=== PATIENT | female | born 1985 | race Caucasian/White ===

== ENCOUNTER 2017-12-08 11:10 | Emergency (ER) | payer SELFPAY ==
[~2017-12-08] VITALS: Ht 160 cm; Wt 61.2 kg
[2017-12-08] MEDS ORDERED: LORAZEPAM INJ 2 MG/ML VIAL ONE (11:20)
[2017-12-08] MEDS ORDERED: HALOPERIDOL LACTATE INJ 5 MG/ML VIAL ONE (11:20)
[2017-12-08] MEDS: LORAZEPAM INJ 2 MG/ML VIAL IM ONE (11:32)
[2017-12-08] MEDS: HALOPERIDOL LACTATE INJ 5 MG/ML VIAL IM ONE (11:32)
--- NOTE | 2017-12-08 11:32 | NUR ---
PT REC'D TO ER VIA EMS TALKING AND CONFUSED ALANA WRIST RESTRAINT APPLIED . IM ATIVAN AND HALDOL 5 MG IM GIVEN PER MD ORDER . LABS DRAWN SEN TO LAB AWAITING EVALUATION BY ER PROVIDER.
[2017-12-08 11:36] LABS: BASOPHILS # (AUTO) 0.4 /CMM (0.0-0.2); BASOPHILS % (AUTO) 2.8 % (0.0-2.0); EOSINOPHILS % (AUTO) 0.1 % (0.0-6.0); HEMATOCRIT 38 % (33-45); LYMPHOCYTES # (AUTO) 1.9 /CMM (0.8-4.8); MEAN CORPUSCULAR HEMOGLOBIN 29 PG (26.0-33.0); MEAN CORPUSCULAR HGB CONC 34 g/dl (31.0-36.0); MEAN CORPUSCULAR VOLUME 86 fL (82-100); MONOCYTES % (AUTO) 6.2 % (2.0-12.0); NEUTROPHILS # (AUTO) 12.3 /CMM (1.8-8.9); NEUTROPHILS % (AUTO) 78.9 % (43.0-81.0); PLATELET COUNT (AUTO) 260 /CMM (150-450); RDW COEFFICIENT OF VARIATION 13.4 (11.5-15.0); RED BLOOD CELL COUNT(AUTO) 4.44 MIL/uL (4.0-5.2); WHITE BLOOD COUNT (AUTO) 15.6 K/uL (4.3-11.0)
[2017-12-08 11:45] LABS: CALCIUM, SERUM 9.3 mg/dL (8.5-10.1); CARBON DIOXIDE 24 mmol/L (21-32); CHLORIDE 102 mmol/L (98-107); CREATININE 0.7 mg/dL (0.6-1.3); GLUCOSE 83 mg/dL (74-106); POTASSIUM 3.1 mmol/L (3.5-5.1); SODIUM SERUM 139 mmol/L (136-145); UREA NITROGEN, BLOOD 15 mg/dL (7-18)
--- NOTE | 2017-12-08 11:55 | NUR ---
PT ABMB TO BR VOIDED UA SENT TO LAB VSS
[2017-12-08 11:58] LABS: ACETAMINOPHEN < 2 ug/ml (10-30); ALANINE AMINOTRANSFERASE 25 U/L (12-78); ALBUMIN 4.7 g/dL (3.4-5.0); ALCOHOL, BLOOD < 3 mg/dL (0-0); ALKALINE PHOSPHATASE 57 U/L (46-116); ASPARTATE AMINOTRANSFERASE 33 U/L (15-37); BILIRUBIN,DIRECT 0.2 mg/dL (0.0-0.2); BILIRUBIN,TOTAL 0.7 mg/dL (0.2-1.0); SALICYLATE 1.7 mg/dL (2.8-20.0); TOTAL PROTEIN, SERUM 8.4 g/dL (6.4-8.2)
[2017-12-08 11:58] LABS: APPEARANCE,URINE Clear (CLEAR); BILIRUBIN,URINE Negative (NEGATIVE); BLOOD, URINE Negative Ery/uL (NEGATIVE); COLOR,URINE Yellow (YELLOW); KETONES,URINE Negative (NEGATIVE); LEUKOCYTE ESTERASE ,URINE Negative (NEGATIVE); NITRITE, URINE Negative (NEGATIVE); PH,URINE 5.5 (5.0-8.0); PROTEIN,URINE 30 mg/dl (NEGATIVE); UGLUCOSE Negative (NEGATIVE); UROBILINOGEN,URINE 0.2 EU/dL (0.2)
[2017-12-08 12:15] LABS: BACTERIA,URINE Rare /HPF (None Seen); RBC,URINE NONE SEEN /HPF (0-2); SQUAMOUS EPITHELIAL CELL,UR Few /HPF (None Seen); WBC,URINE NONE SEEN /HPF (0-3)
--- NOTE | 2017-12-08 12:34 | NUR ---
PT SLEEPING CONT TO MONITOR
[2017-12-08] MEDS ORDERED: risperiDONE 0.25 MG TABLET PO ONE (13:48)
[2017-12-08] MEDS: risperiDONE 0.25 MG TABLET PO ONE (13:53)
--- NOTE | 2017-12-08 13:54 | NUR ---
PT AWAKE GIVEN PO TOLERATED WELL MEDS GIVEN
--- NOTE | 2017-12-08 16:12 | NUR ---
Patient discharged to home/self-care in stable condition. Written and verbal after care instructions given. Patient verbalizes understanding of instruction. NAD. VS WNL. Ambulatory with a steady gait.
[2017-12-08 16:13] VITALS: BP 113/65
== END 2017-12-08 16:15 | disposition home or self-care (01) ==
LOC: ER 11:12
DX: T43.621A Poisoning by amphetamines, accidental (unintentional), initial encounter (principal); F19.10 Other psychoactive substance abuse, uncomplicated
CPT/HCPCS: 36415; 80048; 80076; 80305; 80329; 81001; 85025; 96372 ×2; 99284; A4606; G0480 ×2; J1630; J2060; Z7610; 81000-TC